=== PATIENT | female | born 1990 | race Caucasian/White ===

== ENCOUNTER 2024-09-14 22:09 | Emergency (ER) | payer BC, SELFPAY ==
[2024-09-14 22:11] VITALS: BP 119/86; PULSE 83; RESP 16; TEMP 36.4; O2SAT 100
--- NOTE | 2024-09-14 22:26 | W.ED.GENAD ---
Discharge Plan Disposition Patient Disposition: Home Condition: Good Discharge Details Clinical Impression: Skin lesion Primary Care Provider: Unknown,Unknown ED Provider: Chito Ch Home Meds and New Rx's Prescriptions: No Action hydroxychloroquine [Plaquenil] 200 mg tablet 200 mg PO DAILY Discharge Instructions Instructions: Melanoma skin cancer Additional Instructions: At this time you have an atypical lesion on your back. When lesions look this way they can be from abnormal moles or from something more concerning like melanoma. At this stage it is hard to tell if it is actually melanoma or another form of cancer. Thankfully there is no other evidence of significant spread or other concerning lesions. Due to the atypical nature of this lesion it is imperative that you have it evaluated by a netsuite consultant. Please contact your dermatology office tomorrow morning in [place] to set up an appointment for evaluation of the mole. Do not hesitate to inform them that you were seen in the emergency department and that the physician there had significant concern for the lesion and felt it wisest to have it evaluated promptly for biopsy. If you notice any worsening of your symptoms, or any new symptoms such as vomiting, diarrhea, fever, chills, shortness of breath, chest pain, numbness, weakness, or fainting , please return immediately to the emergency department for reevaluation. Please follow up with your primary care provider as soon as possible for reassessment and reevaluation. As always, it was a pleasure participating in your medical care today. HPI General Date/Time Provider Initiated Documentation: 09/14/24 22:10. HPI Narrative: This is a pleasant 33-year-old female with a past medical history of lupus, fibromyalgia, currently on Plaquenil, who is visiting from [place] for , who presents today for evaluation of a mole. Patient states she noted atypical mole this afternoon, and after going online became quite concerned with potential for melanoma. She came to the ER for further assessment. She denies any fever or chills. She denies any recent weight loss. In fact she does admit to some weight gain. She admits that the lesion is slightly tender. She denies any trauma. She denies any personal or family history of melanoma. She states that all of her jobs throughout her life have been indoors, and that she utilizes sunscreen. Family history is positive for lung cancer and prostate cancer in her grandfather, but no one else. She denies smoking for herself. No other complaints at this time. No other modifying factors. Related Data Home Medications ?Medication ?Instructions ?Recorded ?Confirmed hydroxychloroquine 200 mg tablet 200 mg PO DAILY 09/14/24 09/14/24 (Plaquenil) Allergies Allergy/AdvReac Type Severity Reaction Status Date / Time aspirin Allergy Unknown Verified 09/14/24 22:27 General Stated Complaint: RashLesion ALEKSANDR: 5 Review of Systems All systems reviewed & are unremarkable except as noted in HPI and below Exam Narrative Exam Narrative: 1.Const: Well-nourished, Well-developed, appearing stated age 2.Eyes: PERRL, no conjunctival injection, and symmetrical lids. 3.ENT: Atraumatic external nose and ears. Moist MM. Neck: Symmetric, trachea midline, No thyromegaly. 4.CVS: +S1/S2, Peripheral pulses 2+ and equal in all extremities. Brisk capillary refill in all extremities. 5.RESP: Unlabored respiratory effort. Clear to auscultation bilaterally. No wheezes rales or rhonchi 6.GI: Soft, Nontender/Nondistended, No hepatosplenomegaly. No guarding or rebound. 7.MSK: Normocephalic/Atraumatic, Extremities w/o deformity or ttp No cyanosis or clubbing, Normal movement of all extremities 8.Skin: Warm, Dry. Singulair nevus is located on the patient's back. There appears to be a off-center brown nevus with variations in its coloring, however surrounding it is a more red discoloration in an oval like pattern. No bleeding, no pulsatility, no warmth, no drainage. No other satellite lesions. 9.Neuro: guard supervisor II-XII grossly intact. Sensation grossly intact, no focal neurologic deficits. 10.Psych: (AAO) x3. Appropriate mood and affect Course Vital Signs Vital signs: Vital Signs Temperature 36.4 C L 09/14/24 22:11 Pulse 83 09/14/24 22:11 Respiratory Rate 16 09/14/24 22:11 Blood Pressure 119/86 09/14/24 22:11 Pulse Oximetry 100 09/14/24 22:11 Temperature 36.4 C L 09/14/24 22:11 Temperature Source Temporal Artery Scan 09/14/24 22:11 Pulse 83 09/14/24 22:11 Respiratory Rate 16 09/14/24 22:11 Respiratory Effort Normal 09/14/24 22:16 Blood Pressure 119/86 09/14/24 22:11 Blood Pressure Position Sitting 09/14/24 22:11 Pulse Oximetry 100 09/14/24 22:11 Oxygen Delivery Method Room Air 09/14/24 22:11 Oxygen Flow Rate 0 09/14/24 22:11 Pain Level 0 09/14/24 22:11 Medical Decision Making This is a pleasant 33-year-old female with a past medical history of lupus, fibromyalgia, currently on Plaquenil, who is visiting from [place] for , who presents today for evaluation of a mole. Patient states she noted atypical mole this afternoon, and after going online became quite concerned with potential for melanoma. She came to the ER for further assessment. She denies any fever or chills. She denies any recent weight loss. In fact she does admit to some weight gain. She admits that the lesion is slightly tender. She denies any trauma. She denies any personal or family history of melanoma. She states that all of her jobs throughout her life have been indoors, and that she utilizes sunscreen. Family history is positive for lung cancer and prostate cancer in her grandfather, but no one else. She denies smoking for herself. No other complaints at this time. No other modifying factors. The patient's physical exam demonstrates a Singulair nevus is located on the patient's back. There appears to be a off-center brown nevus with variations in its coloring, however surrounding it is a more red discoloration in an oval like pattern. No bleeding, no pulsatility, no warmth, no drainage. No other satellite lesions. Total diameter is 8 mm x 6 mm. No other atypical lesions. Patient does not have any other nevi that look similar to this. No other abnormality otherwise. Symptoms are inconsistent with cellulitis, abscess, large basal or squamous cell carcinoma, Kaposi's sarcoma. While it certainly may be an atypical nevus, the differential does include early stage melanoma. Patient is traveling back to her home in [place] tomorrow. She does have an established relationship with a netsuite consultant there already. After a long discussion, I have recommended immediate follow-up with this netsuite consultant. She states that she will be calling them tomorrow morning. My recommendation is for scheduled biopsy for pathology evaluation. Patient understands this and will be following up shortly on an outpatient basis. Otherwise patient does not demonstrate symptoms at this time clinically consistent with late stage melanoma. No weight loss, no fever, no chills, no fatigue. Discussed red flags for which to return. I have extensively reviewed the treatment plan and discharge instructions with the patient. I have addressed all patient concerns at this time. The patient was made aware of what symptoms to monitor for that would warrant a return to the emergency department. Discussed the plan with the patient, they demonstrate verbal understanding and agreement with our assessment and plan at this time. The documentation in this chart was dictated using [employer] dictation software. Please excuse any dictation errors. Quality:SDOH Health Related Social Needs: No Data to Display PFSH All Active Problems (Updated 09/14/24 @ 22:28 by Chito Ch DO) Skin lesion (Acute) Social History Smoking risk assessment performed?: No
== END 2024-09-14 22:32 | disposition home or self-care (01) ==
LOC: ER 22:41
PROVIDERS: Emergency Provider Student in an Organized Health Care Education/Training Program
DX: L98.9 Disorder of the skin and subcutaneous tissue, unspecified (principal)
CPT/HCPCS: 99281; 99282